=== PATIENT | male | born 1990 | race Caucasian/White ===

== ENCOUNTER → 2019-01-15 | Day surgery (SDC) | payer BC ==
--- NOTE | 2019-01-14 13:44 | NUR ---
Spoke with Lab to follow up for bloodwork for patient. Lab stated they just charles his blood.
[2019-01-14 13:48] LABS: BASOPHILS % 0.3 % (0.0-1.0); EOSINOPHILS # (AUTO) 0.2 (0.0-0.4); EOSINOPHILS % 2.3 % (0.0-6.0); HEMATOCRIT 44.2 % (38.2-49.6); HEMOGLOBIN 15.1 g/dL (14.0-18.0); LYMPHOCYTES # (AUTO) 1.7 (1.0-3.2); LYMPHOCYTES % 24.5 % (18.0-39.1); MEAN CORPUSCULAR HEMOGLOBIN 31.4 pg (28-32); MEAN CORPUSCULAR HGB CONC 34.2 g/dL (31-35); MEAN CORPUSCULAR VOLUME 91.9 fL (81-99); MONOCYTES # (AUTO) 0.4 (0.2-0.8); MONOCYTES % 6.3 % (4.4-11.3); NEUTROPHILS # (AUTO) 4.6 (2.1-6.9); NEUTROPHILS % 66.5 % (38.7-80.0); PLATELET COUNT 240 x10e3/uL (140-360); RED BLOOD COUNT 4.81 x10e6/uL (4.3-5.7); RED CELL DISTRIBUTION WIDTH 12.4 % (11.7-14.4)
[2019-01-14 13:57] LABS: INR 0.92; PROTHROMBIN TIME 12.8 seconds (11.9-14.5)
[2019-01-14 14:07] LABS: ALANINE AMINOTRANSFERASE 16 IU/L (0-55); ALBUMIN 4.3 g/dL (3.5-5.0); ALBUMIN/GLOBULIN RATIO 1.4 (0.8-2.0); ALKALINE PHOSPHATASE 73 IU/L (40-150); ANION GAP 12.7 mmol/L (8-16); BLOOD UREA NITROGEN 11 mg/dL (7-26); BUN/CREATININE RATIO 10 (6-25); CALCIUM 9.3 mg/dL (8.4-10.2); CARBON DIOXIDE 29 mmol/L (22-29); CHLORIDE 99 mmol/L (98-107); CREATININE, SERUM 1.06 mg/dL (0.72-1.25); EST GLOMERULAR FILTRATION RATE > 60 ML/MIN (60-); GLUCOSE 91 mg/dL (74-118); POTASSIUM 3.7 mmol/L (3.5-5.1); SODIUM 137 mmol/L (136-145)
[~2019-01-15] VITALS: Ht 172.7 cm; Wt 77.1 kg
[~2019-01-15] MED LIST: BIVALRIUDIN 250 MG/VIAL VIAL IV ONE; CARVEDILOL3.125 MG PO; DIPHENHYDRAMINE HCL INJ 50 MG/ML VIAL ONE; FENTANYL CITRATE/PF 100MCG/2 ML INJ ONE; HEPARIN SOD (PORCINE) 1000 UNIT/ML 30ML ONE; HEPARIN SOD/SOD CHLORIDE 2,000 ML ONE; IOPAMIDOL 370 MG/ML 200 ML INFUS..BTL INJ ONE; LEXAPRO10 MG PO; LIDOCAINE HCL 2% LOCAL 20 ML VIAL ONE; LORAZEPAM INJ 2 MG/ML VIAL ONE; MIDAZOLAM HCL 2 MG/2 ML VIAL ONE; SODIUM CHLORIDE 0.9% 1000ML 1,000 ML ONE; SODIUM CHLORIDE 0.9% 50ML 0 ML ONE
--- NOTE | 2019-01-15 11:40 | NUR ---
pt in Radiology bay 4, prepped for procedure. Alert oriented and appropriate, PERRLA, respirations even and unlabored to room air. Pulses x4 extremities equal and palpable. Cap fill brisk < 3 sec. skin cool, palms clammy. pt states keeping nerves by drinking 6 pack daily. Skin integrity appears intact in general. IV 20g started to left forearm and presents healthy w/o s/s of infiltration or complaint. Abdomen soft and supple. pt offered toileting, denies need to urinate or defecate. Personal affects with patient. Family at bedside. Pt and family verbalizes understanding of POC. Pre-Op Meds NA. bed low and locked, side rails up x2 and call light at side. -cgf
--- NOTE | 2019-01-15 11:55 | NUR ---
pt maintains being "edgy". informed MD of pt appearance of nervousness and recent statement of ETOH habit. orders received. 2mg ativan given slow IVP. reinforced use of call light. bed remains low and locked and SR up x2 - cgf
--- NOTE | 2019-01-17 06:23 | Operative Report ---
DATE OF PROCEDURE: 01/15/2019 SURGEON: Sujit Mclean MD INDICATIONS: 1. Renal artery stenosis. 2. Hypertensive urgency. PROCEDURES PERFORMED: 1. Abdominal aorta catheter placement with selective catheterization of bilateral renal arteries and renal angiogram. 2. Deployment of right groin Mynx closure device. COMPLICATIONS: None. RECOMMENDATIONS: Medical therapy. DESCRIPTION OF PROCEDURE: Access obtained in the right femoral artery. A 6-[place] sheath was placed. Abdominal aortogram nonselectively with catheter placement in the abdominal aorta demonstrated no disease in the abdominal aorta. Selective renal angiograms were performed with no evidence of renal artery stenosis. Right groin repaired using Mynx closure device. The patient was discharged home same day. Sujit Mclean MD KSB/MODL /[id number]
== END | disposition home or self-care (01) ==
LOC: CATH LAB 10:14
PROVIDERS: ATTEND Internal Medicine Interventional Cardiology
DX: I70.1 Atherosclerosis of renal artery (principal); I16.0 Hypertensive urgency; Z01.812 Encounter for preprocedural laboratory examination
CPT/HCPCS: 36252; 36415; 80053; 85025; 85610; C1760; J1644; J2001; J2060; J2250; J3010; J7030; Q9967; J0583; J1200